=== PATIENT | male | born 1965 | race Caucasian/White ===

== ENCOUNTER 2017-04-15 03:51 | Emergency (ER) | payer SELFPAY ==
[2017-04-15 04:43] VITALS: BP 125/73; PULSE 75; TEMP 98.7; BMI 29.0
--- NOTE | 2017-04-15 05:32 | PDOC ---
Attending Attestation - Resident Resident Name: Himanshu Watson - ED Attending Attestation I have performed the following: I have examined & evaluated the patient, The case was reviewed & discussed with the resident, I agree w/resident's findings & plan - HPI HPI: 04/15/17 19:58 Pt comes with SOB, woke him from sleep. He is breathing easily and his voice is unchanged and he has no CP and no fever. - Physicial Exam PE: 04/15/17 19:58 Agree with resident's exam - Medical Decision Making 04/15/17 19:58 CXR, EKG, reeval.
--- NOTE | 2017-04-15 05:59 | PDOC ---
History of Present Illness - General Chief Complaint: Pain, Acute Stated Complaint: NECK SWELLING Time Seen by Provider: 04/15/17 04:48 History Source: Patient Exam Limitations: No Limitations - History of Present Illness Initial Comments: 04/15/17 05:51 Patient is a 51M with history of CAD s/p 2 stenting, HTN and HLD here today complaining of throat swelling. He states that he woke up suddenly from sleep gasping for air, but could breath through his nose and quickly normalized. He denies chest pain and shortness of breath. He denies sick contacts, but recently traveled by air from [place]. While hospitalized for a stenting, he was told that he had sleep apnea that he needed to address as an outpatient but never did. Denies fevers, chills, nausea, and vomiting. Patient denies cough. Patient denies leg swelling. Past History - Past Medical History Allergies/Adverse Reactions: Allergies Allergy/AdvReac Type Severity Reaction Status Date / Time No Known Allergies Allergy Verified 04/15/17 04:41 COPD: No - Suicide/Smoking/Psychosocial Hx Smoking History: Current every day smoker Have you smoked in the past 12 months: Yes Number of Cigarettes Smoked Daily: 10 Information on smoking cessation initiated: No Hx Alcohol Use: No Drug/Substance Use Hx: No Review of Systems - Review of Systems Comments:: 04/15/17 06:02 GENERAL/CONSTITUTIONAL: No fever or chills. HEAD, EYES, EARS, NOSE AND THROAT: No change in vision. Positive for sore throat CARDIOVASCULAR: No chest pain or shortness of breath RESPIRATORY: No cough, wheezing, or hemoptysis. GASTROINTESTINAL: No nausea, vomiting, diarrhea or constipation. GENITOURINARY: No dysuria, frequency, or change in urination. MUSCULOSKELETAL: No joint or muscle swelling or pain. No neck or back pain. SKIN: No rash NEUROLOGIC: No headache, vertigo, loss of consciousness, or change in strength/ sensation. HEMATOLOGIC/LYMPHATIC: No anemia, easy bleeding, or history of blood clots. *Physical Exam - Vital Signs Last Vital Signs Temp Pulse Resp BP Pulse Ox 98.7 F 75 20 125/73 99 04/15/17 04:41 04/15/17 04:41 04/15/17 04:41 04/15/17 04:41 04/15/17 04:41 - Physical Exam Comments: 04/15/17 06:03 GENERAL: Awake, alert, and fully oriented, in no acute distress HEAD: No signs of trauma, normocephalic, atraumatic EYES: PERRLA, EOMI, sclera anicteric, conjunctiva clear ENT: Auricles normal inspection, hearing grossly normal, nares patent, moist mucosa. Oropharynx class iv mallampati. No foreign object seen. Small amount of erythema on lateral posterior edges of visible oropharynx, no exudate. NECK: Normal ROM, supple, no lymphadenopathy, JVD, or masses. Nontender cervical. LUNGS: No distress, speaks full sentences, clear to auscultation bilaterally HEART: Regular rate and rhythm, normal S1 and S2, no murmurs, rubs or gallops, peripheral pulses normal and equal bilaterally. ABDOMEN: Soft, nontender, normoactive bowel sounds. No guarding, no rebound. No masses EXTREMITIES: Normal inspection, Normal range of motion, trace edema. No clubbing or cyanosis. NEUROLOGICAL: Cranial nerves II through XII grossly intact. Normal speech, normal gait, no focal sensorimotor deficits SKIN: Warm, Dry, normal turgor, no rashes or lesions noted. ED Treatment Course - RADIOLOGY Radiology Studies Ordered: Category Date Time Status CHEST PA & LAT [RAD] Stat Radiology 04/15/17 05:33 Ordered Medical Decision Making - Medical Decision Making 04/15/17 06:06 51M with history of CAD s/p stenting, HTN, HLD here today with complaint of throat swelling. Vital signs stable and normal. Patient is easily protecting his airway, is breathing comfortably even in a laying position. Suspicion low for anything other than obstructive sleep apnea. Will evaluate with cxr, ekg, rapid strep. EKG shows normal sinus rhythm, normal rate, no st elevations/depressions, no t- wave abnormalities. Reassuring EKG. 04/15/17 06:36 Strep negative. 04/15/17 07:[address] Day. Pending CXR. Likely dispo home. *DC/Admit/Observation/Transfer Diagnosis at time of Disposition: Obstructive sleep apnea - Referrals - Patient Instructions - Post Discharge Activity
--- NOTE | 2017-04-15 07:13 | PDOC ---
*Physical Exam - Vital Signs Last Vital Signs Temp Pulse Resp BP Pulse Ox 98.7 F 75 20 125/73 99 04/15/17 04:41 04/15/17 04:41 04/15/17 04:41 04/15/17 04:41 04/15/17 04:41 ED Treatment Course - ADDITIONAL ORDERS Additional order review: 04/15/17 05:44 Group A Strep Rapid Antigen - Final Throat Medical Decision Making - Medical Decision Making 04/15/17 07:11 Patient signed out to me by Dr. Watson, night team. DEEPAK, CAD w/ stents in November. Fam hx heart disease. CC: Obstruction in throat. Currently stable. Hemodynamically stable. Pending CXR and disposition, likely home. 04/15/17 07:22 Rapid strep negative. 04/15/17 08:38 CXR negative. Patient ready for d/c. *DC/Admit/Observation/Transfer Diagnosis at time of Disposition: Obstructive sleep apnea - Discharge Dispostion Disposition: HOME Condition at time of disposition: Stable Admit: No - Referrals - Patient Instructions Additional Instructions: Please return to the ER if symptoms persist, worsen, or new symptoms arise. Please follow up with your primary care physician in 2-3 days. Please return to the ER if you have any signs or symptoms of chest pain, shortness of breath, uncontrollable fever, chills, nausea, vomiting, numbness, tingling, or weakness in any part of your body, changes in vision, or slurred speech. Print Language: ZAMBIAN - Post Discharge Activity
--- NOTE | 2017-04-15 17:13 | EKG ---
Test Reason : Blood Pressure : / mmHG Vent. Rate : 063 BPM Atrial Rate : 063 BPM P-R Int : 138 ms QRS Dur : 088 ms QT Int : 386 ms P-R-T Axes : 065 054 042 degrees QTc Int : 395 ms NORMAL SINUS RHYTHM NORMAL ECG NO PREVIOUS ECGS AVAILABLE Confirmed by JANA BENNETT MD ([id number]) on 04/15/2017 5:13:48 PM Referred By: Confirmed By:JANA BENNETT MD
== END 2017-04-15 09:52 | disposition home or self-care (01) ==
LOC: JER 03:51
DX: G47.33 Obstructive sleep apnea (adult) (pediatric) (principal); I25.10 Atherosclerotic heart disease of native coronary artery without angina pectoris; I10 Essential (primary) hypertension; F17.210 Nicotine dependence, cigarettes, uncomplicated; Z95.5 Presence of coronary angioplasty implant and graft
CPT/HCPCS: 71020-TC; 87070; 87077; 87430; 93005; 93010; 99281-25